=== PATIENT | male | born 1945 | race Caucasian/White ===

== ENCOUNTER 2017-11-28 12:41 | Inpatient (IN) | payer MEDICARE ==
[~2017-11-28] VITALS: Ht 180.3 cm; Wt 88.5 kg
[2017-11-28 13:47] LABS: BASOPHILS % (AUTO) 0.4 % (0.0-5.0); EOSINOPHILS % (AUTO) 0.9 % (0.0-8.0); LYMPHOCYTES % (AUTO) 10.1 % (21.0-51.0); MEAN CORPUSCULAR HGB CONC 34.6 g/dL (32.0-36.0); MEAN CORPUSCULAR VOLUME 92.3 fL (79-99); MONOCYTES % (AUTO) 9.5 % (3.0-13.0); NEUTROPHILS % (AUTO) 79.1 % (40.0-77.0); PLATELET COUNT (AUTO) 183 K/uL (130-400); RED BLOOD CELL COUNT(AUTO) 4.66 MIL/uL (4.50-6.20); RED CELL DISTRIBUTION WIDTH 13.6 % (11.0-15.5); WHITE BLOOD COUNT (AUTO) 9.4 K/uL (4.8-10.8)
[2017-11-28 13:54] LABS: CREATININE 1.2 mg/dL (0.5-1.5)
[2017-11-28 13:58] LABS: ALBUMIN 3.8 g/dL (3.5-5.0); BILIRUBIN,TOTAL 1.1 mg/dL (0.2-1.0); TOTAL PROTEIN, SERUM 7.5 g/dL (6.0-8.3)
[2017-11-28 13:59] LABS: APPEARANCE,URINE Clear (CLEAR); BILIRUBIN,URINE Negative (NEGATIVE); COLOR,URINE Yellow (YELLOW); GLUCOSE, URINE (UA) Negative (NEGATIVE); KETONES,URINE 15 mg/dL (NEGATIVE); LEUKOCYTE ESTERASE ,URINE Negative (NEGATIVE); NITRATE,URINE Negative (NEGATIVE); OCCULT BLOOD,URINE Negative (NEGATIVE); PROTEIN,URINE Negative (NEGATIVE)
[2017-11-28 14:01] LABS: INR 0.97 (0.85-1.15); PARTIAL THROMBOPLASTIN TIME 25.9 SEC (26.3-35.5); PROTHROMBIN TIME 10.2 SEC (9.6-11.6)
[2017-11-28 14:10] LABS: CREATINE KINASE MB 1.2 ng/mL (0.5-3.6); CRP QUANTITATIVE 57.2 mg/L (0.00-9.0)
[2017-11-28 14:12] LABS: BACTERIA,URINE None Seen /HPF (None Seen); RBC,URINE 0-1 /HPF (0-1); SQUAMOUS EPITHELIAL CELL,UR 0-2 /HPF (0-2); WBC,URINE 0-1 /HPF (0-1)
[2017-11-28] MEDS ORDERED: VANCOMYCIN 1GM+NS 250ML 250 ML IV ONE (15:11)
[2017-11-28] MEDS ORDERED: CLINDAMYCIN 600 MG/D5% WATER 50 ML IV ONE (17:21)
[2017-11-28 21:54] VITALS: BP 140/83
[2017-11-28] MEDS ORDERED: ONDANSETRON HCL 4 MG/2 ML VIAL IVP PRN (22:00)
[2017-11-28] MEDS ORDERED: ACETAMINOPHEN 325 MG TAB PO PRN (22:45)
[2017-11-29 03:44] VITALS: BP 119/82
[2017-11-29] MEDS ORDERED: SODIUM CHLORIDE 0.9% 250 ML IV ONE (05:41)
[2017-11-29] MEDS: CLINDAMYCIN 600 MG/D5% WATER 50 ML IV SCH ×2 (05:52→14:37)
[2017-11-29] MEDS ORDERED: IBUPROFEN 200 MG TAB ONE (06:15)
[2017-11-29 08:00] VITALS: BP 122/70
[2017-11-29 12:00] VITALS: BP 106/53
[2017-11-29 16:00] VITALS: BP 113/73
[2017-11-29] MEDS: IBUPROFEN 600 MG TABLET PO PRN (18:23)
[2017-11-29 19:10] VITALS: BP 123/75
[2017-11-30] MEDS: CLINDAMYCIN 600 MG/D5% WATER 50 ML IV SCH ×3 (00:02→14:19)
[2017-11-30 00:05] VITALS: BP 118/67
[2017-11-30 04:00] VITALS: BP 126/75
[2017-11-30 08:00] VITALS: BP 122/59
[2017-11-30] MEDS: IBUPROFEN 600 MG TABLET PO PRN (08:28)
[2017-11-30 11:18] VITALS: BP 108/61
[2017-11-30] MEDS: MORPHINE SULFATE 4 MG/1ML SYG ONE ×2 (14:21→14:24)
[2017-11-30] MEDS ORDERED: VANCOMYCIN PROTOCOL PER PHARMACY IV SCH (14:30)
[2017-11-30] MEDS ORDERED: MORPHINE SULFATE 4 MG/1ML SYG IV PRN (14:30)
[2017-11-30] MEDS ORDERED: COMPOUND IV REFRIGERATED 1 EACH IVSOLN MISC PRN (15:00)
[2017-11-30] MEDS ORDERED: VANCOMYCIN 2 GM in SODIUM CHLORIDE 0.9% 500ML 500 ML IV ONE (15:00)
[2017-11-30 16:00] VITALS: BP 105/61
[2017-11-30 19:22] VITALS: BP 100/65
[2017-12-01] VITALS (7 sets, daily range): BP systolic 106–144; BP diastolic 60–87
[2017-12-01] MEDS: VANCOMYCIN 1GM+NS 250ML 250 ML IV SCH ×2 (03:13→14:28)
[2017-12-01 05:50] LABS: HEMATOCRIT 38.2 % (42-54); MEAN CORPUSCULAR HEMOGLOBIN 31.3 pg (27.0-33.0); MEAN CORPUSCULAR HGB CONC 33.9 g/dL (32.0-36.0); MEAN CORPUSCULAR VOLUME 92.2 fL (79-99); PLATELET COUNT (AUTO) 160 K/uL (130-400); RED BLOOD CELL COUNT(AUTO) 4.14 MIL/uL (4.50-6.20); RED CELL DISTRIBUTION WIDTH 13.7 % (11.0-15.5); WHITE BLOOD COUNT (AUTO) 7.6 K/uL (4.8-10.8)
[2017-12-01 05:58] LABS: ALBUMIN 2.8 g/dL (3.5-5.0); BILIRUBIN,TOTAL 0.9 mg/dL (0.2-1.0); POTASSIUM 3.8 mmol/L (3.5-5.1); TOTAL PROTEIN, SERUM 6.4 g/dL (6.0-8.3)
[2017-12-01 05:59] LABS: BAND NEUTROPHILS % (MANUAL) 3 % (0-2); EOSINOPHILS % (MANUAL) 1 % (1-6); LYMPHOCYTES % (MANUAL) 33 % (22-44); MONOCYTES % (MANUAL) 7 % (2-9); REACTIVE LYMPHOCYTES 3 % (0-0); SEGMENTED NEUTROPHILS % 53 % (40-70)
[2017-12-01 06:00] LABS: MAN.DIFF COMMENT-IMPRESSION MANUAL DIFFERENTIAL; PLATELET MORPHOLOGY COMMENT ADEQUATE
[2017-12-01] MEDS: IBUPROFEN 600 MG TABLET PO PRN (08:22)
[2017-12-02 03:00] VITALS: BP 131/74
[2017-12-02] MEDS: VANCOMYCIN 1GM+NS 250ML 250 ML IV SCH ×2 (03:22→15:38)
[2017-12-02 05:00] LABS: HEMATOCRIT 39.7 % (42-54); MEAN CORPUSCULAR HGB CONC 33.6 g/dL (32.0-36.0); MEAN CORPUSCULAR VOLUME 92.3 fL (79-99); PLATELET COUNT (AUTO) 176 K/uL (130-400); RED CELL DISTRIBUTION WIDTH 13.9 % (11.0-15.5); WHITE BLOOD COUNT (AUTO) 7.1 K/uL (4.8-10.8)
[2017-12-02 05:20] LABS: ALBUMIN 2.8 g/dL (3.5-5.0); BILIRUBIN,TOTAL 0.7 mg/dL (0.2-1.0); TOTAL PROTEIN, SERUM 6.4 g/dL (6.0-8.3)
[2017-12-02 08:00] VITALS: BP 138/72
[2017-12-02 12:00] VITALS: BP 114/56
[2017-12-02 16:00] VITALS: BP 128/73
[2017-12-02 19:00] VITALS: BP 115/67
[2017-12-02 23:00] VITALS: BP 121/64
[2017-12-03 03:00] VITALS: BP 124/72
[2017-12-03] MEDS: VANCOMYCIN 1GM+NS 250ML 250 ML IV SCH ×2 (03:07→16:10)
[2017-12-03 05:06] LABS: BASOPHILS % (AUTO) 0.8 % (0.0-5.0); EOSINOPHILS % (AUTO) 3.6 % (0.0-8.0); HEMATOCRIT 38.3 % (42-54); LYMPHOCYTES % (AUTO) 33.2 % (21.0-51.0); MEAN CORPUSCULAR HEMOGLOBIN 31.1 pg (27.0-33.0); MEAN CORPUSCULAR HGB CONC 33.8 g/dL (32.0-36.0); MONOCYTES % (AUTO) 11.1 % (3.0-13.0); NEUTROPHILS % (AUTO) 51.3 % (40.0-77.0); PLATELET COUNT (AUTO) 191 K/uL (130-400); RED BLOOD CELL COUNT(AUTO) 4.16 MIL/uL (4.50-6.20); RED CELL DISTRIBUTION WIDTH 13.4 % (11.0-15.5); WHITE BLOOD COUNT (AUTO) 6.2 K/uL (4.8-10.8)
[2017-12-03 05:17] LABS: POTASSIUM 4.2 mmol/L (3.5-5.1)
[2017-12-03 08:00] VITALS: BP 108/68
[2017-12-03] MEDS ORDERED: DIPHENHYDRAMINE HCL 25 MG CAPSULE PO PRN (09:30)
[2017-12-03 12:00] VITALS: BP 102/60
[2017-12-03 16:00] VITALS: BP 131/78
[2017-12-03 19:00] VITALS: BP 122/76
[2017-12-03 23:00] VITALS: BP 113/71
[2017-12-04 03:00] VITALS: BP 128/77
[2017-12-04] MEDS: VANCOMYCIN 1GM+NS 250ML 250 ML IV SCH ×2 (03:20→14:16)
[2017-12-04 05:52] LABS: EOSINOPHILS % (AUTO) 4.2 % (0.0-8.0); HEMATOCRIT 37.8 % (42-54); LYMPHOCYTES % (AUTO) 35.5 % (21.0-51.0); MEAN CORPUSCULAR HEMOGLOBIN 31.1 pg (27.0-33.0); MEAN CORPUSCULAR HGB CONC 33.7 g/dL (32.0-36.0); MEAN CORPUSCULAR VOLUME 92.1 fL (79-99); MONOCYTES % (AUTO) 9.6 % (3.0-13.0); NEUTROPHILS % (AUTO) 49.7 % (40.0-77.0); NUCLEATED RED BLOOD CELLS 0.1 % (0.0-0.19); PLATELET COUNT (AUTO) 200 K/uL (130-400); RED BLOOD CELL COUNT(AUTO) 4.11 MIL/uL (4.50-6.20); RED CELL DISTRIBUTION WIDTH 13.4 % (11.0-15.5); WHITE BLOOD COUNT (AUTO) 5.4 K/uL (4.8-10.8)
[2017-12-04 06:06] LABS: POTASSIUM 4.1 mmol/L (3.5-5.1)
[2017-12-04 08:00] VITALS: BP 141/69
[2017-12-04 11:00] VITALS: BP 124/59
[2017-12-04 16:00] VITALS: BP 137/77
== END 2017-12-04 17:59 | disposition home or self-care (01) | DRG 603 ==
LOC: EDH 12:41 → OBSVTOIN 16:26 → UNDOADMOB 16:26 → EDHIP 16:26 → 3BH 21:31 → EDHIP 21:31 → INTOOBSV 11-30 17:02 → OBSVTOIN 11-30 17:02
PROVIDERS: ADMIT Family Medicine; ATTEND Family Medicine
DX: L03.113 Cellulitis of right upper limb (principal); L02.511 Cutaneous abscess of right hand; K51.20 Ulcerative (chronic) proctitis without complications; M79.89 Other specified soft tissue disorders; E78.5 Hyperlipidemia, unspecified; Z96.642 Presence of left artificial hip joint; I10 Essential (primary) hypertension; H40.9 Unspecified glaucoma; R00.1 Bradycardia, unspecified; K62.89 Other specified diseases of anus and rectum; Z88.8 Allergy status to other drugs, medicaments and biological substances; I44.0 Atrioventricular block, first degree
CPT/HCPCS: 36415; 80048; 80053; 80202; 81001; 82550; 82553; 83605; 84484; 85025; 85027; 85610; 85651; 85730; 86140; 87040; 87070; 87076; 93005; 93971; G0378; J2270; J3370; J3490; J7030; J7040

== ENCOUNTER → 2023-07-06 | Outpatient (CLI) | payer OTHER | END | disposition home or self-care (01) | LOC: OIH 10:15 | PROVIDERS: ATTEND Family Medicine | DX: Z13.6 Encounter for screening for cardiovascular disorders (principal) | CPT/HCPCS: 75571 ==